=== PATIENT | male | born 1995 | race African-American/Black ===

== ENCOUNTER 2018-10-05 19:48 | Emergency (ER) | payer OTHER ==
[2018-10-05] MEDS ORDERED: IBUPROFEN 600 MG TABLET ONE (20:08)
[2018-10-05] MEDS ORDERED: IPRATROPIUM/ALBUTEROL SULFATE 3 ML SOLUTION IH ONE (20:35)
[2018-10-05] MEDS ORDERED: DEXAMETHASONE SOD PHOSPHATE 10MG/ML 1ML VIAL ONE (20:48)
[2018-10-05 20:59] LABS: RAPID GROUP A STREP NEGATIVE (NEGATIVE)
== END 2018-10-05 21:15 | disposition home or self-care (01) ==
LOC: EDH 19:48
DX: J45.909 Unspecified asthma, uncomplicated (principal); Z72.0 Tobacco use
CPT/HCPCS: 71046; 87804 ×2; 87880; 94640; 96372; 99284; J1100

== ENCOUNTER 2019-01-25 22:47 | Emergency (ER) | payer OTHER | END 2019-01-26 00:14 | LOC: EDH 22:47 | DX: S62.395D Other fracture of fourth metacarpal bone, left hand, subsequent encounter for fracture with routine healing (principal); J45.909 Unspecified asthma, uncomplicated; Z91.013 Allergy to seafood; X58.XXXD Exposure to other specified factors, subsequent encounter ==

== ENCOUNTER 2019-01-26 15:24 | Emergency (ER) | payer OTHER ==
[2019-01-26] MEDS ORDERED: IBUPROFEN 400 MG TABLET ONE (15:49)
== END 2019-01-26 15:53 | disposition home or self-care (01) ==
LOC: EEVIPCON 15:24 → EDH 15:24
DX: S62.395D Other fracture of fourth metacarpal bone, left hand, subsequent encounter for fracture with routine healing (principal); J45.909 Unspecified asthma, uncomplicated; Z91.013 Allergy to seafood; Z72.0 Tobacco use; X58.XXXD Exposure to other specified factors, subsequent encounter
CPT/HCPCS: 73130